=== PATIENT | female | born 1990 | race Caucasian/White ===

== ENCOUNTER → 2020-10-24 | Outpatient (CLI) | payer OTHER | END | disposition home or self-care (01) | LOC: OIH 13:00 | PROVIDERS: ATTEND Family Medicine | DX: M21.752 Unequal limb length (acquired), left femur (principal); M25.551 Pain in right hip | CPT/HCPCS: 73521 ==

== ENCOUNTER → 2021-02-04 | Outpatient (CLI) | payer OTHER | END | disposition home or self-care (01) | LOC: OIH 15:10 | PROVIDERS: ATTEND Physical Medicine & Rehabilitation | DX: M47.27 Other spondylosis with radiculopathy, lumbosacral region (principal) | CPT/HCPCS: 72110 ==

== ENCOUNTER → 2021-03-01 | Outpatient (CLI) | payer OTHER ==
[~2021-03-01] MED LIST: GADOTERATE MEGLUMINE 10 MMOL/20 ML VIAL IV ONE
== END | disposition home or self-care (01) ==
LOC: RAH 10:58
PROVIDERS: ATTEND Physical Medicine & Rehabilitation
DX: N85.4 Malposition of uterus (principal); N83.292 Other ovarian cyst, left side; N83.291 Other ovarian cyst, right side; M54.16 Radiculopathy, lumbar region
CPT/HCPCS: 72197; A9575